=== PATIENT | male | born 1995 | race Caucasian/White ===

== ENCOUNTER 2017-01-20 04:11 | Emergency (ER) | payer OTHER ==
[~2017-01-20 04:11] MED LIST: TRAM50 PO
[2017-01-20 04:15] VITALS: BP 166/80; PULSE 70; RESP 20; TEMP 98
--- NOTE | 2017-01-20 05:01 | RADHPO ---
EXAM DATE/TIME: 01/20/2017 04:21 [facility] COMPARISON: No previous studies available for comparison. INDICATIONS : Trauma, fall, left foot pain MEDICAL HISTORY : None. SURGICAL HISTORY : None. ENCOUNTER: Initial ACUITY: 1 day PAIN SCORE: 8/10 LOCATION: Left foot FINDINGS: Three view examination of the left foot demonstrates no soft tissue swelling, dislocation, or fractur e. The tarsal bones appear intact. The interphalangeal and metatarsophalangeal joints are intact. The calcaneus is intact. Bony mineralization is normal. CONCLUSION: Unremarkable examination of the left foot. Nicholas Soriano MD on January 20, 2017 at 4:59 Board Certified Radiologist. This report was verified electronically.
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
== END 2017-01-20 05:30 | disposition home or self-care (01) ==
LOC: PHED 04:11
DX: S90.32XA Contusion of left foot, initial encounter (principal); S90.122A Contusion of left lesser toe(s) without damage to nail, initial encounter; W22.8XXA Striking against or struck by other objects, initial encounter
CPT/HCPCS: 73630; 99283; E0113

== ENCOUNTER 2017-03-03 11:39 | Emergency (ER) | payer OTHER ==
[~2017-03-03] VITALS: Ht 165.1 cm; Wt 89.8 kg
[2017-03-03 11:44] VITALS: BP 148/102; PULSE 92; RESP 18; TEMP 98.4; O2SAT 98
[2017-03-03] MEDS ORDERED: CYMB30CA PO (11:48)
[2017-03-03 11:53] VITALS: BP 138/87; PULSE 88; RESP 18; O2SAT 98
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
--- NOTE | 2017-03-03 12:23 | RADRPT ---
EXAM DATE/TIME: 03/03/2017 11:48 [facility] COMPARISON: No previous studies available for comparison. INDICATIONS : Hit head two days ago. Nausea and sleepy afterward. RADIATION DOSE: 57.82 CTDIvol (mGy) MEDICAL HISTORY : None SURGICAL HISTORY : None. ENCOUNTER: Initial ACUITY: 2 days PAIN SCALE: 4/10 LOCATION: Right occipital TECHNIQUE: Multiple contiguous axial images were obtained of the head. Using automated exposure control and adj ustment of the mA and/or kV according to patient size, radiation dose was kept as low as reasonably a chievable to obtain optimal diagnostic quality images. DICOM format image data is available electro nically for review and comparison. FINDINGS: CEREBRUM: The ventricles are normal for age. No evidence of midline shift, mass lesion, hemorrhage or acute in farction. No extra-axial fluid collections are seen. POSTERIOR FOSSA: The cerebellum and brainstem are intact. The 4th ventricle is midline. The cerebellopontine angle i s unremarkable. EXTRACRANIAL: The visualized portion of the orbits is intact. SKULL: The calvaria is intact. No evidence of skull fracture. CONCLUSION: Normal examination. Nicholas Soriano MD on March 03, 2017 at 12:18 Board Certified Radiologist. This report was verified electronically.
[2017-03-03] MEDS ORDERED: IBUP-232 PO (12:26)
== END 2017-03-03 12:36 | disposition home or self-care (01) ==
LOC: PHED 11:39
DX: S09.90XA Unspecified injury of head, initial encounter (principal); S06.0X0A Concussion without loss of consciousness, initial encounter; R53.83 Other fatigue; Z87.39 Personal history of other diseases of the musculoskeletal system and connective tissue; W22.09XA Striking against other stationary object, initial encounter; Y99.0 Civilian activity done for income or pay
CPT/HCPCS: 70450; 99284